=== PATIENT | female | born 1930 | race Caucasian/White ===

== ENCOUNTER 2016-11-02 15:27 | Inpatient (IN) | payer BC, OTHER ==
[~2016-11-02] VITALS: Ht 152.4 cm; Wt 73.5 kg
[~2016-11-02 15:27] MED LIST: ALBU1AER9 INH; ASPEC325 PO; CFT250 PO; CHOL100027 PO; CLTP PO; HYDC25 PO; MGNO400 PO; MULTTAB58 PO; PRD20 PO
[2016-11-02] MEDS ORDERED: PIPERACILLIN/TAZOBACTAM 4.5 GM/100ML D5W IV STA (15:48)
[2016-11-02] MEDS ORDERED: ALBUT/IPRATROP 3MG/0.5MG NEB 3 ML VIAL INH STA (15:48)
[2016-11-02] MEDS ORDERED: METHYLPREDNISOLONE 125 MG VIAL IV STA (15:48)
[2016-11-02] MEDS ORDERED: ALBU18002 INH (16:11)
[2016-11-02] MEDS ORDERED: CALCTAB7 PO (16:11)
[2016-11-02] MEDS ORDERED: ASPI-113 PO (16:11)
[2016-11-02] MEDS ORDERED: HYDR12.56 PO (16:11)
[2016-11-02] MEDS ORDERED: ADVIN10/60 INH (16:13)
--- NOTE | 2016-11-02 16:16 | DIAGNOSTIC IMAGING REPORT ---
CHEST ONE VIEW PORTABLE CLINICAL HISTORY: Sepsis COMPARISON STUDY: Chest radiograph September 15, 2015. FINDINGS: Lung volumes are normal. No consolidation is identified. There is no evidence of pulmonary edema. Cardiomediastinal silhouette is stable. IMPRESSION: No acute cardiopulmonary findings. Electronically signed by: Jesus Elizondo M.D. 11/02/2016 4:14 PM Dictated Date/Time: 11/02/2016 4:13 PM
[2016-11-02 16:43] LABS: BUN/CREATININE RATIO 12.3 (10-20); CALCIUM 9.8 mg/dl (8.5-10.1); CREATININE 1.3 mg/dl (0.60-1.20)
[2016-11-02 16:45] LABS: ALB/GLOB RATIO 0.9 (0.9-2)
[2016-11-02] MEDS ORDERED: OPTIRAY 320 IV PRN (17:00)
[2016-11-02 17:01] LABS: HEMATOCRIT 43.3 % (37-47); MEAN CELL VOLUME 89.5 fL (80-100); MEAN CORPUSCULAR HEMOGLOBIN 29.3 pg (25-34); MEAN CORPUSCULAR HGB CONC 32.8 g/dl (32-36); MEAN PLATELET VOLUME 11.2 fL (7.4-10.4); PLATELET COUNT 204 K/uL (130-400); RED BLOOD COUNT 4.84 M/uL (4.2-5.4)
--- NOTE | 2016-11-02 17:36 | DIAGNOSTIC IMAGING REPORT ---
CT ANGIOGRAPHY OF THE CHEST, PULMONARY EMBOLUS PROTOCOL CLINICAL HISTORY: Shortness of breath. COMPARISON STUDY: Chest CT May 28, 2014 and chest radiograph performed earlier today. TECHNIQUE: Following IV administration of 104 mL of Optiray-320, helical axial images of the chest were obtained utilizing the pulmonary embolus protocol. Maximal intensity projections and sagittal and coronal reformats were viewed on an independent 3D workstation. IV contrast was administered without complication. CT DOSE: 312.36 mGy.cm FINDINGS: No pulmonary emboli are identified. The heart is mildly enlarged. There is no pericardial effusion. No enlarged thoracic lymph nodes are present. There are minimal secretions within the trachea and right mainstem bronchus. There is a 3.8 x 1.5 cm subpleural focus of consolidation with adjacent groundglass opacity within the left lower lobe. There are minimal tree-in-bud opacities within the lingula and right middle lobe. No pneumothorax or pleural effusions present. There is no cavitation. Note is made of a 6 mm left upper lobe nodule shown image 180 of 278 as well as a 4 mm nodule within the left lower lobe shown on image 76. The bony thorax is unremarkable. A right renal staghorn calculus is partially imaged. Note is made of a 6 mm nodular focus within the lingula. IMPRESSION: 1. No pulmonary emboli identified. 2. 3.8 x 1.5 cm subpleural focus of consolidation with adjacent groundglass opacity within the left lower lobe which suggests a small area of pneumonia. Additional minimal tree-in-bud opacities within the lingula and right middle lobe suggest an infectious process as well. A follow-up chest CT in one month to ensure resolution is recommended. 3. Several pulmonary nodules measuring up to 6 mm. A follow-up chest CT in 6 months to ensure stability is recommended. 4. Right renal staghorn calculus. Electronically signed by: Jesus Elizondo M.D. 11/02/2016 5:34 PM Dictated Date/Time: 11/02/2016 5:25 PM
[2016-11-02 17:40] LABS: BASO % 0.1 %; BASO ABS # 0.03 K/uL (0-0.2); COMPLETE YES; IG% 0.6 %; LYMPH % 6.3 %; LYMPH ABS # 1.69 K/uL (1.2-3.4); MONO % 6.9 %; NEUT % 86.1 %; STOMATOCYTE 1+
[2016-11-02 17:57] LABS: INR 1.2 (0.9-1.1); PARTIAL THROMBOPLASTIN RATIO 1.2; PROTHROMBIN TIME (PATIENT) 12.4 SECONDS (9.0-12.0)
[2016-11-02] MEDS ORDERED: SODIUM CHLORIDE 0.9% 1000ML 1,000 ML IV SCH (17:58)
[2016-11-02] MEDS ORDERED: NITROGLYCERIN 0.4 MG SL PER TAB CHARGE SL PRN (18:00)
[2016-11-02] MEDS ORDERED: ACETAMINOPHEN 325 MG TAB PO PRN (18:00)
[2016-11-02] MEDS ORDERED: ONDANSETRON INJ 2 MG/ML 2 ML VIAL IV PRN (18:00)
[2016-11-02] MEDS ORDERED: LEVALBUTEROL/IPRATROPIUM NEB INH SCH (18:30)
[2016-11-02] MEDS ORDERED: PIPERACILL/TAZOBAC IV 2.25 GM in DEXTROSE 5% 100ML 100 ML IV SCH (18:30)
[2016-11-02] MEDS ORDERED: LEVOFLOXACIN / D5W 500 MG in PREMIXED IN D5W 100 ML IV SCH (18:30)
--- NOTE | 2016-11-02 19:05 | History and Physical ---
History & Physical Date & Time of Service: Nov 02, 2016 at 18:36 Chief Complaint: SOB Primary Care Physician: Brian Joseph M.D. History of Present Illness Source: patient This is an 85 y/o female with PMHx of COPD with ongoing tobacco use, CKD stage 3 , PAF, HTN, Dyslipidemia and other problems as outlined below who presents to the ED c/o worsening SOB that began yesterday. Pt reports that yesterday she developed SOB that is worse with exertion. Her sxs are assoc with fevers (T max 101*F), wheezing and mildly productive cough of yellow sputum. Pt has been using her inhalers at home with only temporary relief. She was seen by PCP today. Per patient, CXR revealed bilat lower lobe pneumonia and she was sent to the ED for further evaluation. Pt has a history of COPD and continues to smoke 1.5 ppd. She is not on steroids or oxygen at home. Pt currently lives at home with her sister, [place]. Pt denies chest pain, abd pain, N/V, bowel or bladder issues, LE edema, calf pain, lightheadedness/dizziness. In the ED, pt is tachycardic, tachypneic and hypoxic on room air. She is now saturating well on 4L O2. Pt is afebrile with leukocytosis >27k. POC lactic acid 2.14. creat 1.3. Chest CT + LLL consolidation with ground glass opacity in lingula and R middle lobe. Pt received a DuoNeb tx in the ED which gave her significant relief. Pt is hemodynamically stable and will be admitted for further evaluation and treatment. Past Medical/Surgical History Medical Problems: (1) Anemia Status: Resolved (2) Carcinoma of colon Status: Resolved (3) Carcinoma of right breast Status: Resolved (4) HTN (hypertension) Status: Chronic (5) Osteoporosis Status: Chronic Surgical Problems: (1) S/P appendectomy Status: Resolved (2) S/P cholecystectomy Status: Resolved (3) S/P hemicolectomy Status: Resolved (4) S/P radical mastectomy Status: Resolved Family History Diabetes mellitus FH: COPD (chronic obstructive pulmonary disease) FH: IN (myocardial infarction) FH: cancer MS (multiple sclerosis) Social History Smoking Status: Current Every Day Smoker (1.5 ppd x 40 years ) Alcohol Use: none Drug Use: none Housing status: lives with family (sister ) Occupational Status: retired Immunizations History of Influenza Vaccine: Yes Influenza Vaccine Date: May 21, 2009 History of Tetanus Vaccine?: No Tetanus Immunization Date: Oct 05, 1999 History of Pneumococcal: Yes Pneumococcal Date: Aug 20, 2000 History of Hepatitis B Vaccine: No Multi-Drug Resistant Organisms History of MDRO: No Allergies Coded Allergies: Sulfa Antibiotics (Verified Allergy, Mild, RASH, 11/02/16) Magnesium (Unverified Allergy, Unknown, REDNESS/ITCHYNESS, 11/02/16) Home Medications Scheduled Aspirin Enteric Coated (Ecotrin Or Generic), 325 MG PO QAM Calcium Carbonate-Vitamin D W/ (Caltrate 600 Plus), 1 TAB PO DAILY Cholecalciferol (Vitamin D 1000 Unit), 1,000 INTER.UNIT PO DAILY Fluticasone Prop/Salmeterol (Advair Diskus 100/50 60 Dose), 1 PUFF INH BID Hydrochlorothiazide (Hctz), 12.5 MG PO DAILY Multiple Vitamin (Multivitamin), 1 TAB PO DAILY Scheduled PRN Albuterol Sulfate (Proair Respiclick), 2 PUFFS INH Q4 PRN for SOB/Wheezing Review of Systems Constitutional: + chills, + fatigue, + fever, No sweats, No weakness Eyes: No worsening of vision ENT: No hearing loss Respiratory: + cough, + dyspnea on exertion, + shortness of breath, + sputum, + wheezing, No dyspnea at rest Cardiovascular: No chest pain, No claudication, No edema, No palpitations Abdomen: No constipation, No diarrhea, No nausea, No pain, No vomiting Musculoskeletal: No calf pain, No swelling Genitourinary - Female: No dysuria Neurologic: No weakness Psychiatric: No depression symptoms Endocrine: + fatigue Hematologic / Lymphatic: No abnormal bleeding/bruising Integumentary: No new/changing skin lesions Physical Exam Vital Signs Date Time Temp Pulse Resp B/P Pulse Ox O2 Delivery O2 Flow Rate FiO2 11/02/16 17:49 116 21 105/74 91 Nasal Cannula 4.0 11/02/16 17:00 92 Nasal Cannula 4.0 11/02/16 17:00 113 24 105/74 92 Nasal Cannula 4.0 11/02/16 16:50 130 11/02/16 15:34 86 Room Air 11/02/16 15:34 37.3 130 30 106/68 86 Room Air General Appearance: WD/WN, no apparent distress, + pertinent finding (Pt is sitting up in bed with sister at bedside ) Head: normocephalic, atraumatic Eyes: normal inspection ENT: hearing grossly normal Neck: supple Respiratory/Chest: chest non-tender, no respiratory distress, + pertinent finding (decreased air movement to lungs bilat; no wheezing noted ) Cardiovascular: regular rate, rhythm, no edema, no murmur Abdomen/GI: normal bowel sounds, non tender, soft Back: normal inspection Extremities/Musculoskelatal: normal inspection, no calf tenderness, no pedal edema Neurologic/Psych: alert, normal mood/affect, oriented x 3 Skin: normal color, warm/dry Diagnostics Laboratory Results Results Past 24 Hours Test 11/02/16 16:06 11/02/16 16:10 11/02/16 16:42 11/02/16 17:00 Range/Units Sodium Level 139 136-145 mmol/L Potassium Level 4.0 3.5-5.1 mmol/L Chloride Level 98 98-107 mmol/L Carbon Dioxide Level 33 21-32 mmol/L Anion Gap 8.0 3-11 mmol/L Blood Urea Nitrogen 16 7-18 mg/dl Creatinine 1.30 0.60-1.20 mg/dl Est Creatinine Clear Calc Drug Dose 26.8 ml/min Estimated GFR () 42.7 Estimated GFR (Non- 36.9 BUN/Creatinine Ratio 12.3 10-20 Random Glucose 135 70-99 mg/dl Calcium Level 9.8 8.5-10.1 mg/dl Total Bilirubin 0.8 0.2-1 mg/dl Aspartate Amino Transf (AST/SGOT) 14 15-37 U/L Alanine Aminotransferase (ALT/SGPT) 16 12-78 U/L Alkaline Phosphatase 78 45-117 U/L Total Protein 7.8 6.4-8.2 gm/dl Albumin 3.6 3.4-5.0 gm/dl Globulin 4.2 2.5-4.0 gm/dl Albumin/Globulin Ratio 0.9 0.9-2 Bedside Lactic Acid Venous 2.14 0.90-1.70 mmol/L White Blood Count 26.70 4.8-10.8 K/uL Red Blood Count 4.84 4.2-5.4 M/uL Hemoglobin 14.2 12.0-16.0 g/dL Hematocrit 43.3 37-47 % Mean Corpuscular Volume 89.5 80-100 fL Mean Corpuscular Hemoglobin 29.3 25-34 pg Mean Corpuscular Hemoglobin Concent 32.8 32-36 g/dl Platelet Count 204 130-400 K/uL Mean Platelet Volume 11.2 7.4-10.4 fL Neutrophils (%) (Auto) 86.1 % Lymphocytes (%) (Auto) 6.3 % Monocytes (%) (Auto) 6.9 % Eosinophils (%) (Auto) 0.0 % Basophils (%) (Auto) 0.1 % Neutrophils # (Auto) 23.00 1.4-6.5 K/uL Lymphocytes # (Auto) 1.69 1.2-3.4 K/uL Monocytes # (Auto) 1.83 0.11-0.59 K/uL Eosinophils # (Auto) 0.00 0-0.5 K/uL Basophils # (Auto) 0.03 0-0.2 K/uL RDW Standard Deviation 44.8 36.4-46.3 fL RDW Coefficient of Variation 13.7 11.5-14.5 % Immature Granulocyte % (Auto) 0.6 % Immature Granulocyte # (Auto) 0.15 0.00-0.02 K/uL Stomatocytes 1+ Influenza Type A Antigen Neg for Influ A NEG Influenza Type B Antigen Neg for Influ B NEG Test 11/02/16 17:30 11/02/16 17:45 11/02/16 17:51 Range/Units Prothrombin Time 12.4 9.0-12.0 SECONDS Prothromb Time International Ratio 1.2 0.9-1.1 Activated Partial Thromboplast Time 29.9 21.0-31.0 SECONDS Partial Thromboplastin Ratio 1.2 Bedside Troponin I 0.000 0-0.045 ng/ml Microbiology Results 11/02/16 Blood Culture, Received Pending 11/02/16 Blood Culture, Received Pending Diagnostic Radiology CHEST CT IMPRESSION: 1. No pulmonary emboli identified. 2. 3.8 x 1.5 cm subpleural focus of consolidation with adjacent groundglass opacity within the left lower lobe which suggests a small area of pneumonia. Additional minimal tree-in-bud opacities within the lingula and right middle lobe suggest an infectious process as well. A follow-up chest CT in one month to ensure resolution is recommended. 3. Several pulmonary nodules measuring up to 6 mm. A follow-up chest CT in 6 months to ensure stability is recommended. 4. Right renal staghorn calculus. CXR IMPRESSION: No acute cardiopulmonary findings. EKG EKG: sinus tachycardia at 119 bpm with nonspec T wave abnormalities in lateral leads; T wave changes are new when compared to EKG from 09/11/15 Impression Assessment and Plan HYPOXIC RESPIRATORY FAILURE SECONDARY TO PNEUMONIA/COPD EXACERBATION pt presented with SOB assoc with low grade fever, wheezing and mildly prod cough ; O2 84% on arrival--> now saturating well on 4L O2 -admit to telemetry -meets SIRS criteria with tachycardia, tachypnea, leukocytosis > 26k and POC lactic acid 2.14 -CT chest + LLL consolidation with ground-glass opacity to lingula and R middle lobe -negative flu -blood and sputum cx-pending -repeat lactic acid within 6 hrs -start IVF and abx (Zosyn and Levaquin) -start Xopenex and Prednisone 40mg daily -cont supplemental O2 -counseled regarding importance of smoking cessation -monitor PULMONARY NODULES -CT chest + multiple pulmonary nodules measuring up to 6 mm -recommend repeat CT in 6 months CKD STAGE 3 -creatinine is at baseline around 1.3 -cont to monitor with daily prp and avoid nephrotoxic agents when able PAF -EKG: sinus tachy -cont ASA HTN -BP on low side -hold HCTZ for now; restart when BP stabilizes -monitor DYSLIPIDEMIA -diet-controlled DVT PROPHYLAXIS -subq Lovenox CODE STATUS -DNR/DNI per discussion with patient upon admission DISPO Pt seen in collaboration with Dr. Mares. Please see his addendum for further details. Thanks! -Of note: patient will be followed by Dr. Rush starting tomorrow AM VTE Prophylaxis VTE Risk Assessment Done? Y/N: Yes Risk Level: Moderate Note ATTENDING ADDENDUM Record reviewed. Patient interviewed and examined. Care coordinated with Allegra Bennett PA-C. Please refer to her documentation for patient's history. Briefly, 85 YO female with COPD. Presented to ED with worsening cough and dyspnea. EXAM: General- no acute distress VS- as noted Neck- + JVD Lungs- diffuse wheezing Heart- RRR Abdomen- + BS, soft, nontender Extremities- no pretibial edema or calf tenderness Neuro- alert DATA: WBC 26,700. Lactate 2.14. Lab studies as noted. CXR- no apparent infiltrates. CT chest- LLL and lingular infiltrates, no pulm emboli EKG- MAT 120/min, NSSTTWA's. ASSESSMENT AND PLAN: Sepsis due to pneumonia. Blood cultures obtained. Received IV Zosyn. Add levofloxacin. Serum lactate 2.14- follow. Tachycardic, hemodynamically stable. Exacerbation COPD / acute respiratory failure. Levalbuterol nebs. Prednisone 40 mg daily. Supplemental O2. Please refer to KRYSTIN Bennett's documentation for discussion of other issues. Long Mares MD .
--- NOTE | 2016-11-02 19:07 | EMERGENCY ROOM VISIT NOTE ---
History Report prepared by Bridget: Chi Herrera Under the Supervision of: Dr. Jan Cotter M.D. First contact with patient: 15:39 Chief Complaint: SHORTNESS OF BREATH Stated Complaint: SOB Nursing Triage Summary: Cough productive of scant phlegm per pt. denies cp recent dx of pneumonia smoker History of Present Illness The patient is an 85 year old female who presents to the Emergency Room with complaints of persistent shortness of breath that started yesterday morning. The patient also complains of a non-productive cough and fever of 101. She had an appointment with Kaylah at [place] prior to arrival where they did a Chest X-ray and saw lower lobe pneumonia bilaterally. They sent her to the ED via ALS and recommended she be accepted for admission here. The patient did not have any breathing treatments at her appointment before arrival to the ED. Also , upon arrival at her doctor's appointment she was 84% on room air. The patient is not normally on oxygen at home. She denies chest pain at this time. The patient does state that she smokes a pack and half per day although did not smoke today. Source of History: patient Onset: yesterday morning Position: other (global) Symptom Intensity: moderate Quality: other (shortness of breath) Timing: other (persistent) Modifying Factors (Relieving): oxygen Associated Symptoms: + cough (non-productive), + fevers, No chest pain Review of Systems See HPI for pertinent positives & negatives. A total of 10 systems reviewed and were otherwise negative. Past Medical & Surgical Medical Problems: (1) Anemia (2) Carcinoma of colon (3) Carcinoma of right breast (4) HTN (hypertension) (5) Osteoporosis (6) Pneumonia (7) Sepsis Surgical Problems: (1) S/P appendectomy (2) S/P cholecystectomy (3) S/P hemicolectomy (4) S/P radical mastectomy Family History Diabetes mellitus FH: COPD (chronic obstructive pulmonary disease) FH: LA (myocardial infarction) FH: cancer MS (multiple sclerosis) Social History Smoking Status: Current Every Day Smoker Alcohol Use: none Drug Use: none Housing Status: lives with family Occupation Status: retired Current/Historical Medications Scheduled Aspirin Enteric Coated (Ecotrin Or Generic), 325 MG PO QAM Calcium Carbonate-Vitamin D W/ (Caltrate 600 Plus), 1 TAB PO DAILY Cholecalciferol (Vitamin D 1000 Unit), 1,000 INTER.UNIT PO DAILY Fluticasone Prop/Salmeterol (Advair Diskus 100/50 60 Dose), 1 PUFF INH BID Hydrochlorothiazide (Hctz), 12.5 MG PO DAILY Multiple Vitamin (Multivitamin), 1 TAB PO DAILY Scheduled PRN Albuterol Sulfate (Proair Respiclick), 2 PUFFS INH Q4 PRN for SOB/Wheezing Allergies Coded Allergies: Sulfa Antibiotics (Verified Allergy, Mild, RASH, 11/02/16) Magnesium (Unverified Allergy, Unknown, REDNESS/ITCHYNESS, 11/02/16) Physical Exam Vital Signs Date Time Temp Pulse Resp B/P Pulse Ox O2 Delivery O2 Flow Rate FiO2 11/02/16 17:49 116 21 105/74 91 Nasal Cannula 4.0 11/02/16 17:00 92 Nasal Cannula 4.0 11/02/16 17:00 113 24 105/74 92 Nasal Cannula 4.0 11/02/16 16:50 130 11/02/16 15:34 86 Room Air 11/02/16 15:34 37.3 130 30 106/68 86 Room Air Physical Exam Constitutional: Vital signs reviewed. Eyes: Pupils are equal round reactive to light. Conjunctiva are noninjected. ENT: Pharynx is clear without erythema or exudate. Mucous membranes are moist. Neck supple without meningeal signs. Respiratory: Bibasilar rales. Mild Diffuse expiratory wheezing. Cardiovascular: Tachycardic. Heart rate 112. GI: Soft, nondistended and nontender. Bowel sounds are present. Musculoskeletal: No peripheral edema. No lower extremity tenderness. Integumentary: No cyanosis. Neurological: The patient is awake and alert. No focal deficits. Psychiatric: Normal affect. Medical Decision & Procedures ER Provider Diagnostic Interpretation: Radiology results as stated below per my review and the radiologist's interpretation: CHEST ONE VIEW PORTABLE CLINICAL HISTORY: Sepsis COMPARISON STUDY: Chest radiograph September 15, 2015. FINDINGS: Lung volumes are normal. No consolidation is identified. There is no evidence of pulmonary edema. Cardiomediastinal silhouette is stable. IMPRESSION: No acute cardiopulmonary findings. Electronically signed by: Jesus Elizondo M.D. 11/02/2016 4:14 PM Dictated Date/Time: 11/02/2016 4:[address] ANGIOGRAPHY OF THE CHEST, PULMONARY EMBOLUS PROTOCOL CLINICAL HISTORY: Shortness of breath. COMPARISON STUDY: Chest CT May 28, 2014 and chest radiograph performed earlier today. TECHNIQUE: Following IV administration of 104 mL of Optiray-320, helical axial images of the chest were obtained utilizing the pulmonary embolus protocol. Maximal intensity projections and sagittal and coronal reformats were viewed on an independent 3D workstation. IV contrast was administered without complication. CT DOSE: 312.36 mGy.cm FINDINGS: No pulmonary emboli are identified. The heart is mildly enlarged. There is no pericardial effusion. No enlarged thoracic lymph nodes are present. There are minimal secretions within the trachea and right mainstem bronchus. There is a 3.8 x 1.5 cm subpleural focus of consolidation with adjacent groundglass opacity within the left lower lobe. There are minimal tree-in-bud opacities within the lingula and right middle lobe. No pneumothorax or pleural effusions present. There is no cavitation. Note is made of a 6 mm left upper lobe nodule shown image 180 of 278 as well as a 4 mm nodule within the left lower lobe shown on image 76. The bony thorax is unremarkable. A right renal staghorn calculus is partially imaged. Note is made of a 6 mm nodular focus within the lingula. IMPRESSION: 1. No pulmonary emboli identified. 2. 3.8 x 1.5 cm subpleural focus of consolidation with adjacent groundglass opacity within the left lower lobe which suggests a small area of pneumonia. Additional minimal tree-in-bud opacities within the lingula and right middle lobe suggest an infectious process as well. A follow-up chest CT in one month to ensure resolution is recommended. 3. Several pulmonary nodules measuring up to 6 mm. A follow-up chest CT in 6 months to ensure stability is recommended. 4. Right renal staghorn calculus. Electronically signed by: Jesus Elizondo M.D. 11/02/2016 5:34 PM Dictated Date/Time: 11/02/2016 5:25 PM Laboratory Results 11/02/16 16:42 Red Blood Count 4.84, Mean Corpuscular Volume 89.5, Mean Corpuscular Hemoglobin 29.3, Mean Corpuscular Hemoglobin Concent 32.8, Mean Platelet Volume 11.2, Neutrophils (%) (Auto) 86.1, Lymphocytes (%) (Auto) 6.3, Monocytes (%) (Auto) 6.9, Eosinophils (%) (Auto) 0.0, Basophils (%) (Auto) 0.1, Neutrophils # (Auto) 23.00, Lymphocytes # (Auto) 1.69, Monocytes # (Auto) 1.83, Eosinophils # (Auto) 0.00, Basophils # (Auto) 0.03 11/02/16 16:06 Test 11/02/16 16:06 11/02/16 16:10 11/02/16 16:42 11/02/16 17:00 Anion Gap 8.0 mmol/L (3-11) Est Creatinine Clear Calc Drug Dose 26.8 ml/min Estimated GFR () 42.7 Estimated GFR (Non- 36.9 BUN/Creatinine Ratio 12.3 (10-20) Calcium Level 9.8 mg/dl (8.5-10.1) Total Bilirubin 0.8 mg/dl (0.2-1) Aspartate Amino Transf (AST/SGOT) 14 U/L (15-37) Alanine Aminotransferase (ALT/SGPT) 16 U/L (12-78) Alkaline Phosphatase 78 U/L (45-117) Total Protein 7.8 gm/dl (6.4-8.2) Albumin 3.6 gm/dl (3.4-5.0) Globulin 4.2 gm/dl (2.5-4.0) Albumin/Globulin Ratio 0.9 (0.9-2) Bedside Lactic Acid Venous 2.14 mmol/L (0.90-1.70) White Blood Count 26.70 K/uL (4.8-10.8) Red Blood Count 4.84 M/uL (4.2-5.4) Hemoglobin 14.2 g/dL (12.0-16.0) Hematocrit 43.3 % (37-47) Mean Corpuscular Volume 89.5 fL (80-100) Mean Corpuscular Hemoglobin 29.3 pg (25-34) Mean Corpuscular Hemoglobin Concent 32.8 g/dl (32-36) Platelet Count 204 K/uL (130-400) Mean Platelet Volume 11.2 fL (7.4-10.4) Neutrophils (%) (Auto) 86.1 % Lymphocytes (%) (Auto) 6.3 % Monocytes (%) (Auto) 6.9 % Eosinophils (%) (Auto) 0.0 % Basophils (%) (Auto) 0.1 % Neutrophils # (Auto) 23.00 K/uL (1.4-6.5) Lymphocytes # (Auto) 1.69 K/uL (1.2-3.4) Monocytes # (Auto) 1.83 K/uL (0.11-0.59) Eosinophils # (Auto) 0.00 K/uL (0-0.5) Basophils # (Auto) 0.03 K/uL (0-0.2) RDW Standard Deviation 44.8 fL (36.4-46.3) RDW Coefficient of Variation 13.7 % (11.5-14.5) Immature Granulocyte % (Auto) 0.6 % Immature Granulocyte # (Auto) 0.15 K/uL (0.00-0.02) Stomatocytes 1+ Influenza Type A Antigen Neg for Influ A (NEG) Influenza Type B Antigen Neg for Influ B (NEG) Test 11/02/16 17:30 11/02/16 17:45 11/02/16 18:40 Prothrombin Time 12.4 SECONDS (9.0-12.0) Prothromb Time International Ratio 1.2 (0.9-1.1) Activated Partial Thromboplast Time 29.9 SECONDS (21.0-31.0) Partial Thromboplastin Ratio 1.2 Bedside Troponin I 0.000 ng/ml (0-0.045) Laboratory results as reviewed by me. Medications Administered Medications (Trade) Dose Ordered Sig/Lucinda Route Start Time Stop Time Status Last Admin Dose Admin Piperacillin Sod/ Tazobactam Sod (Zosyn Iv) 4.5 gm ONE STAT IV 11/02/16 15:48 11/02/16 15:50 DC 11/02/16 16:48 4.5 GM Methylprednisolone Sodium Succinate (Solu-Medrol IV) 125 mg NOW STAT IV 11/02/16 15:48 11/02/16 15:50 DC 11/02/16 16:48 125 MG Albuterol/ Ipratropium (Duoneb) 3 ml NOW STAT INH 11/02/16 15:48 11/02/16 15:50 DC 11/02/16 15:57 3 ML ECG Indication: SOB/dyspnea Rate (beats per minute): 119 Rhythm: sinus tachycardia Findings: PAC, other (non specific t wave changes) ED Course 1542: The patient was evaluated in room C6. A complete history and physical exam was performed. 1548: Ordered Duoneb 3 ml INH, Solu-Medrol IV 125 mg IV, Zosyn Iv 4.5 gm IV. 1703: At this time, I reevaluated the patient and discussed getting a CAT scan with her. 1748: At this time, I discussed the patient's case with Dr. Mares - Hospitalist [facility] and he agreed to accept the patient for further evaluation. 1752: At this time, I discussed the results with the patient and her family including the incidental findings. I discussed the treatment plan with the patient. Medical Decision This is an 85-year-old female who presents with shortness breath, fever and cough. Differential diagnosis includes pneumonia, sepsis, COPD exacerbation, pulmonary edema, pulmonary embolus. I did perform a limited focused review of portions of the patient's old chart on the electronic medical record. The patient was admitted in September for a CHF exacerbation. I did evaluate the patient as noted above. IV access was established. The patient was placed on a continuous radiation monitor. The patient is hypoxemic here. She was given supplemental oxygen via nasal cannula. She was also given a DuoNeb and Solu-Medrol IV. She does have wheezing on examination as well as rales bilaterally consistent with pneumonia. I did order Zosyn IV to be given after cultures were drawn. I did order and personally review the patient's 12- lead EKG and chest x-ray as described above. Her chest x-ray does not demonstrate a pneumonia. I did order and review the patient's blood work as noted in the electronic medical record. She does have significant leukocytosis. Her lactic acid is not elevated. I did reassess the patient. She has improvement of her wheezing. She is still persistently tachycardic and hypoxemic without oxygen. Although her clinical picture is consistent with pneumonia I was concerned about her hypoxia and tachycardia. I was concerned that she may have a pulmonary embolism given the normal chest x-ray. After discussion with the patient and family, I did order a CT of the chest. I did review the images myself as well as the radiology report as described above. There is no evidence of pulmonary embolism. She does have bilateral pneumonia. I did discuss the test results with the patient and her family, including the incidental findings. I did discuss the case with the hospitalist and human services case manager. Consults Time Called: 1741 Consulting Physician: Dr. Mares - Hospitalist [facility] Returned Call: 1745 At this time, I discussed the patient's case with Dr. Mares and he agreed to accept the patient for further evaluation. Impression Primary Impression: Bilateral pneumonia Additional Impressions: Hypoxemia COPD exacerbation Leukocytosis Scribe Attestation The scribe's documentation has been prepared under my direct and personally reviewed by me in its entirety. I confirm that the note above accurately reflects all work, treatment, procedures, and medical decision making performed by me. Departure Information Dispostion Being Evaluated By Hospitalist Brian Barrios M.D. (PCP) Problem Qualifiers Primary Impression: Bilateral pneumonia Pneumonia type: due to unspecified organism Lung location: unspecified part of lung Qualified Codes: J18.9 - Pneumonia, unspecified organism Additional Impressions: Leukocytosis Leukocytosis type: unspecified Qualified Codes: D72.829 - Elevated white blood cell count, unspecified
[2016-11-02] MEDS ORDERED: PIPERACILL/TAZOBAC CONSULT ACTIVE PRN (21:00)
[2016-11-02 21:01] VITALS: BP 106/65; PULSE 78; TEMP 36.8; O2SAT 93; Ht 152.4 cm; Wt 73.5 kg
[2016-11-02] MEDS ORDERED: LEVOFLOXACIN CONSULT ACTIVE PRN (21:15)
[2016-11-02] MEDS: FLUTICASONE/SALMETEROL 100/50 (ADVAIR) 14 PUFF/1 INHALER INH SCH (21:21)
[2016-11-02] MEDS ORDERED: LEVOFLOXACIN 500MG / D5W IV ONE (22:00)
[2016-11-02] MEDS ORDERED: ENOXAPARIN 40 MG/0.4 ML SYR SC SCH (22:00)
[2016-11-02] MEDS ORDERED: PIPERACILL/TAZOBAC IV 3.375 GM in DEXTROSE 5% 100ML IV SCH (22:00)
[2016-11-02 23:05] VITALS: PULSE 86; O2SAT 95
[2016-11-02] MEDS: LEVALBUTEROL 1.25MG/0.5ML NEB INH SCH (23:33)
[2016-11-02] MEDS: IPRATROPIUM BROMIDE NEB SOLN 0.02% 2.5 ML VIAL INH SCH (23:33)
[2016-11-02 23:54] VITALS: BP 103/62; PULSE 79; TEMP 36.6; O2SAT 93
[2016-11-03] VITALS (15 sets, daily range): BP systolic 92–105; BP diastolic 45–67; PULSE 69–93; TEMP 36.4–37; O2SAT 93–99
[2016-11-03] MEDS: IPRATROPIUM BROMIDE NEB SOLN 0.02% 2.5 ML VIAL INH SCH ×6 (03:52→23:21)
[2016-11-03] MEDS: LEVALBUTEROL 1.25MG/0.5ML NEB INH SCH ×6 (03:52→23:21)
[2016-11-03 06:40] LABS: HEMATOCRIT 40.7 % (37-47); MEAN CELL VOLUME 90.6 fL (80-100); MEAN CORPUSCULAR HEMOGLOBIN 30.3 pg (25-34); MEAN CORPUSCULAR HGB CONC 33.4 g/dl (32-36); MEAN PLATELET VOLUME 11.5 fL (7.4-10.4); PLATELET COUNT 184 K/uL (130-400); RED BLOOD COUNT 4.49 M/uL (4.2-5.4); WHITE BLOOD COUNT 20.43 K/uL (4.8-10.8)
[2016-11-03 07:05] LABS: CALCIUM 8.8 mg/dl (8.5-10.1); CREATININE 1.3 mg/dl (0.60-1.20)
[2016-11-03] MEDS: CALCIUM 600MG + VIT D 400 IU TAB PO SCH (08:42)
[2016-11-03] MEDS: ASPIRIN 325 MG ECTAB PO SCH (08:42)
[2016-11-03] MEDS: FLUTICASONE/SALMETEROL 100/50 (ADVAIR) 14 PUFF/1 INHALER INH SCH ×2 (08:42→21:03)
[2016-11-03] MEDS: CHOLECALCIFEROL 1000 INTER.UNIT TAB PO SCH (08:42)
[2016-11-03] MEDS: MULTIVITAMIN TAB PO SCH (08:42)
[2016-11-03] MEDS: PIPERACILL/TAZOBAC IV 3.375 GM in DEXTROSE 5% 100ML IV SCH ×2 (09:00→17:00)
[2016-11-03] MEDS: NICOTINE 21 MG/24 HR TDSY TD SCH (09:00)
--- NOTE | 2016-11-03 19:03 | Progress Note ---
Internal Med Progress Note Date of Service: Nov 03, 2016. Provider Documentation: SUBJECTIVE: vital remains stable no fever or chills OBJECTIVE: Vital Signs-as noted below Exam: General- no sign of distress Eyes-sclera non icteric ENT-NAD Neck-no thyromegaly Lungs-diminished , no audible wheeze Heart-regular Abdomen-soft, non tender Extremities-no rash or deformity Neuro-no focal neurological deficit Lab data as noted below. ASSESSMENT & PLAN: ACUTE HYPOXIC RESPIRATORY FAILURE SECONDARY TO PNEUMONIA/COPD EXACERBATION pt presented with SOB assoc with low grade fever, wheezing and mildly prod cough ; O2 84% on arrival--> requiring 4L O2 -met SIRS criteria with tachycardia, tachypnea, leukocytosis > 26k and POC lactic acid 2.14 Leukocytosis has improved 20 K -CT chest + LLL consolidation with ground-glass opacity to lingula and R middle lobe -negative flu -blood and sputum cx- ordered - -repeat lactic acid within 6 hrs -normalized -on empiric Abx with Zosyn and Levaquin will d/c Zosyn cont Levaquin possible transition to PO in next 24 hrs will need total 7-10 days of tx -neb tx with Xopenex and Prednisone 40mg daily for COPD exacerbation -cont supplemental O2 -counseled regarding importance of smoking cessation PULMONARY NODULES -CT chest + multiple pulmonary nodules measuring up to 6 mm -recommend repeat CT in 6 months CKD STAGE 3 -creatinine is at baseline around 1.3 -cont to monitor with daily prp and avoid nephrotoxic agents when able PAF -EKG: sinus tachy -cont ASA HTN -BP on low side -hold HCTZ for now; restart when BP stabilizes -monitor DYSLIPIDEMIA -diet-controlled DVT PROPHYLAXIS -subq Lovenox CODE STATUS -DNR/DNI DISPOSITION Discharge home when medically stable PT/OT eval prior to discharge Social service consulted for discharge planning Medicine follow up with Dr Joseph Vital Signs: Date Time Temp Pulse Resp B/P Pulse Ox O2 Delivery O2 Flow Rate FiO2 11/04/16 16:43 94 Nasal Cannula 1.0 11/04/16 15:54 36.8 87 20 125/72 94 Nasal Cannula 1.0 11/04/16 15:32 50 18 91 Nasal Cannula 2.0 11/04/16 13:30 36.9 84 20 130/69 94 Nasal Cannula 1.0 11/04/16 12:00 Nasal Cannula 2.0 11/04/16 11:15 37.0 98 22 96/56 95 Nasal Cannula 2.0 11/04/16 11:08 80 18 97 Nasal Cannula 2.0 11/04/16 09:56 95 11/04/16 08:00 Nasal Cannula 2.0 11/04/16 07:15 76 18 96 Nasal Cannula 2.0 11/04/16 07:14 37.2 64 19 92/53 97 Nasal Cannula 2.0 11/04/16 04:00 Nasal Cannula 2.0 11/04/16 03:36 36.8 77 20 103/62 97 Nasal Cannula 2.0 11/04/16 03:25 81 18 97 Nasal Cannula 2.0 11/03/16 23:59 96 Nasal Cannula 2.0 11/03/16 23:21 86 18 96 Nasal Cannula 2.0 11/03/16 23:18 36.4 90 18 92/45 96 Nasal Cannula 2.0 11/03/16 20:00 Nasal Cannula 2.0 Lab Results: Results Past 24 Hours Test 11/04/16 06:25 Range/Units White Blood Count 19.56 4.8-10.8 K/uL Red Blood Count 4.31 4.2-5.4 M/uL Hemoglobin 13.0 12.0-16.0 g/dL Hematocrit 39.3 37-47 % Mean Corpuscular Volume 91.2 80-100 fL Mean Corpuscular Hemoglobin 30.2 25-34 pg Mean Corpuscular Hemoglobin Concent 33.1 32-36 g/dl RDW Standard Deviation 45.6 36.4-46.3 fL RDW Coefficient of Variation 13.8 11.5-14.5 % Platelet Count 174 130-400 K/uL Mean Platelet Volume 11.3 7.4-10.4 fL Microbiology Results 11/03/16 Gram Stain - Final, Resulted 11/03/16 Sputum Culture - Preliminary, Resulted LIGHT NORMAL DEVON Present, Final Rep...
[2016-11-03] MEDS: LEVOFLOXACIN 250MG / D5W IV SCH (21:03)
[2016-11-03] MEDS: ENOXAPARIN 30 MG/0.3 ML SYR SC SCH (21:05)
[2016-11-04] VITALS (14 sets, daily range): BP systolic 92–130; BP diastolic 53–72; PULSE 50–98; TEMP 36.8–37.2; O2SAT 91–97
[2016-11-04] MEDS: LEVALBUTEROL 1.25MG/0.5ML NEB INH SCH ×6 (03:25→23:17)
[2016-11-04] MEDS: IPRATROPIUM BROMIDE NEB SOLN 0.02% 2.5 ML VIAL INH SCH ×6 (03:25→23:17)
[2016-11-04 06:36] LABS: HEMATOCRIT 39.3 % (37-47); MEAN CELL VOLUME 91.2 fL (80-100); MEAN CORPUSCULAR HEMOGLOBIN 30.2 pg (25-34); MEAN CORPUSCULAR HGB CONC 33.1 g/dl (32-36); MEAN PLATELET VOLUME 11.3 fL (7.4-10.4); PLATELET COUNT 174 K/uL (130-400); RED BLOOD COUNT 4.31 M/uL (4.2-5.4); WHITE BLOOD COUNT 19.56 K/uL (4.8-10.8)
--- NOTE | 2016-11-04 07:52 | DIAGNOSTIC IMAGING REPORT ---
CHEST ONE VIEW PORTABLE HISTORY: Follow-up pneumonia COMPARISON: Chest CTA 11/02/2016. FINDINGS: Small focal left lower lobe peripheral consolidation and trace left pleural effusion. No pneumothorax. The right lung is clear. The heart remains mildly enlarged. IMPRESSION: No significant change in the small focal left lower lobe peripheral consolidation. There may be a trace left pleural effusion. Recommend follow-up to complete resolution Electronically signed by: Pedro Ovalle M.D. 11/04/2016 7:51 AM Dictated Date/Time: 11/04/2016 7:49 AM
[2016-11-04] MEDS: NICOTINE 21 MG/24 HR TDSY TD SCH (09:00)
[2016-11-04] MEDS: CALCIUM 600MG + VIT D 400 IU TAB PO SCH (09:50)
[2016-11-04] MEDS: MULTIVITAMIN TAB PO SCH (09:50)
[2016-11-04] MEDS: ASPIRIN 325 MG ECTAB PO SCH (09:50)
[2016-11-04] MEDS: FLUTICASONE/SALMETEROL 100/50 (ADVAIR) 14 PUFF/1 INHALER INH SCH ×2 (09:50→21:00)
[2016-11-04] MEDS: CHOLECALCIFEROL 1000 INTER.UNIT TAB PO SCH (09:51)
[2016-11-04] MEDS: ENOXAPARIN 30 MG/0.3 ML SYR SC SCH (20:58)
[2016-11-04] MEDS: LEVOFLOXACIN 250MG / D5W IV SCH (20:59)
--- NOTE | 2016-11-04 21:28 | Progress Note ---
Internal Med Progress Note Date of Service: Nov 04, 2016. Provider Documentation: SUBJECTIVE: no cough feels much better today no fever or chills OBJECTIVE: Vital Signs-as noted below Exam: General- no sign of distress Eyes-sclera non icteric ENT-NAD Neck-no thyromegaly Lungs-diminished , no audible wheeze Heart-regular Abdomen-soft, non tender Extremities-no rash or deformity Neuro-no focal neurological deficit Lab data as noted below. ASSESSMENT & PLAN: ACUTE HYPOXIC RESPIRATORY FAILURE SECONDARY TO PNEUMONIA/COPD EXACERBATION improved , respiratory status to approx baseline plan is to wean down 02 Leukocytosis continues to improve -CT chest + LLL consolidation with ground-glass opacity to lingula and R middle lobe -negative flu -blood culture negative on Levaquin will need total 7 days of tx -counseled regarding importance of smoking cessation PULMONARY NODULES -CT chest + multiple pulmonary nodules measuring up to 6 mm -recommend repeat CT in 6 months CKD STAGE 3 -creatinine is at baseline around 1.3 -cont ASA HTN -BP stable DYSLIPIDEMIA -diet-controlled DVT PROPHYLAXIS -subq Lovenox CODE STATUS -DNR/DNI DISPOSITION Discharge home when medically stable Medicine follow up with Dr Joseph Vital Signs: Date Time Temp Pulse Resp B/P Pulse Ox O2 Delivery O2 Flow Rate FiO2 11/05/16 15:57 37.2 83 16 128/71 94 Room Air 11/05/16 15:44 36.8 80 16 96 Room Air 11/05/16 11:12 80 16 96 Room Air 11/05/16 08:00 94 Room Air 11/05/16 07:36 36.8 69 16 107/61 93 Room Air 11/05/16 07:36 76 16 94 Room Air 11/05/16 03:35 73 16 93 Room Air 11/05/16 00:00 Room Air 11/04/16 23:37 37.0 62 18 113/62 93 Room Air 11/04/16 23:17 58 18 93 Room Air 11/04/16 20:04 72 18 97 Nasal Cannula 2.0 11/04/16 20:00 Room Air Lab Results: Results Past 24 Hours Test 11/05/16 05:37 Range/Units White Blood Count 11.22 4.8-10.8 K/uL Red Blood Count 4.34 4.2-5.4 M/uL Hemoglobin 13.0 12.0-16.0 g/dL Hematocrit 40.0 37-47 % Mean Corpuscular Volume 92.2 80-100 fL Mean Corpuscular Hemoglobin 30.0 25-34 pg Mean Corpuscular Hemoglobin Concent 32.5 32-36 g/dl RDW Standard Deviation 46.9 36.4-46.3 fL RDW Coefficient of Variation 13.9 11.5-14.5 % Platelet Count 213 130-400 K/uL Mean Platelet Volume 11.2 7.4-10.4 fL Creatinine 1.30 0.60-1.20 mg/dl Est Creatinine Clear Calc Drug Dose 27.3 ml/min Estimated GFR () 42.7 Estimated GFR (Non- 36.9
[2016-11-05 03:35] VITALS: PULSE 73; O2SAT 93
[2016-11-05] MEDS: IPRATROPIUM BROMIDE NEB SOLN 0.02% 2.5 ML VIAL INH SCH ×4 (03:35→16:00)
[2016-11-05] MEDS: LEVALBUTEROL 1.25MG/0.5ML NEB INH SCH ×4 (03:35→16:00)
[2016-11-05 06:01] LABS: MEAN CELL VOLUME 92.2 fL (80-100); MEAN CORPUSCULAR HGB CONC 32.5 g/dl (32-36); MEAN PLATELET VOLUME 11.2 fL (7.4-10.4); PLATELET COUNT 213 K/uL (130-400); RED BLOOD COUNT 4.34 M/uL (4.2-5.4); WHITE BLOOD COUNT 11.22 K/uL (4.8-10.8)
[2016-11-05 06:34] LABS: CREATININE 1.3 mg/dl (0.60-1.20)
[2016-11-05 07:36] VITALS: BP 107/61; PULSE 69; PULSE 76; TEMP 36.8; O2SAT 93; O2SAT 94
[2016-11-05 08:00] VITALS: O2SAT 94
[2016-11-05] MEDS: MULTIVITAMIN TAB PO SCH (10:02)
[2016-11-05] MEDS: FLUTICASONE/SALMETEROL 100/50 (ADVAIR) 14 PUFF/1 INHALER INH SCH (10:02)
[2016-11-05] MEDS: ASPIRIN 325 MG ECTAB PO SCH (10:03)
[2016-11-05] MEDS: NICOTINE 21 MG/24 HR TDSY TD SCH (10:03)
[2016-11-05] MEDS: CHOLECALCIFEROL 1000 INTER.UNIT TAB PO SCH (10:03)
[2016-11-05] MEDS: CALCIUM 600MG + VIT D 400 IU TAB PO SCH (10:04)
[2016-11-05 11:12] VITALS: PULSE 80; O2SAT 96
--- NOTE | 2016-11-05 15:56 | Discharge Instructions ---
Discharge Instructions Admission Reason for Admission: Pneumonia Sepsis Discharge Discharge Diagnosis / Problem: PNEUMONIA Discharge Goals Goal(s): Decrease discomfort, Improve disease control, Therapeutic intervention Activity Recommendations Activity Limitations: resume your previous activity . Instructions / Follow-Up Instructions / Follow-Up HOSPITAL FOLLOW UP ON @ 12:[address] Brian Joseph MD [facility] -CT chest SHOWED multiple pulmonary nodules measuring up to 6 mm -recommend repeat CT in 6 months Current Hospital Diet Patient's current hospital diet: Regular Diet Discharge Diet Recommended Diet: Regular Diet Pending Studies Studies pending at discharge: no Medical Emergencies . Who to Call and When: Medical Emergencies: If at any time you feel your situation is an emergency, please call 911 immediately. . Non-Emergent Contact Non-Emergency issues call your: Primary Care Provider . . "Provider Documentation" section prepared by Annelise Rhodes. VTE Core Measure Inpt VTE Proph given/why not?: Unfractionated heparin SQ
[2016-11-05 15:57] VITALS: BP 128/71; PULSE 83; TEMP 37.2; O2SAT 94
[2016-11-05] MEDS ORDERED: LVQ250 PO (15:57)
[2016-11-05] MEDS ORDERED: LEVOFLOXACIN 250 MG TAB PO ONE (16:00)
--- NOTE | 2016-11-05 17:16 | Discharge Summary ---
Discharge Summary Date of Service Nov 05, 2016. Discharge Summary Admission Date: Nov 02, 2016 at 18:16 Discharge Date: Nov 05, 2016 Discharge Disposition: Home Principal Diagnosis: PNEUMONIA Medication Reconciliation New Medications: Levofloxacin (Levofloxacin) 250 Mg Tab 250 MG PO DAILY for 3 Days, #3 TAB Continued Medications: Albuterol Sulfate (Proair Respiclick) 108 Mcg/Act Aer 2 PUFFS INH Q4 PRN for SOB/Wheezing Aspirin Enteric Coated (Ecotrin Or Generic) 325 Mg Ectab 325 MG PO QAM, TAB Calcium Carbonate-Vitamin D W/ (Caltrate 600 Plus) 1 Tab Tab 1 TAB PO DAILY, TAB Cholecalciferol (Vitamin D 1000 Unit) 1,000 Unit Cap 1000 INTER.UNIT PO DAILY, CAP Fluticasone Prop/Salmeterol (Advair Diskus 100/50 60 Dose) 1 Ea Aerp 1 PUFF INH BID, #180 Hydrochlorothiazide (Hctz) 12.5 Mg Cap 12.5 MG PO DAILY, TAB Multiple Vitamin (Multivitamin) 1 Tab Tab 1 TAB PO DAILY, TAB Admission Information HPI (per Admitting provider): This is an 85 y/o female with PMHx of COPD with ongoing tobacco use, CKD stage 3 , PAF, HTN, Dyslipidemia and other problems as outlined below who presents to the ED c/o worsening SOB that began yesterday. Pt reports that yesterday she developed SOB that is worse with exertion. Her sxs are assoc with fevers (T max 101*F), wheezing and mildly productive cough of yellow sputum. Pt has been using her inhalers at home with only temporary relief. She was seen by PCP today. Per patient, CXR revealed bilat lower lobe pneumonia and she was sent to the ED for further evaluation. Pt has a history of COPD and continues to smoke 1.5 ppd. She is not on steroids or oxygen at home. Pt currently lives at home with her sister, [place]. Pt denies chest pain, abd pain, N/V, bowel or bladder issues, LE edema, calf pain, lightheadedness/dizziness. In the ED, pt is tachycardic, tachypneic and hypoxic on room air. She is now saturating well on 4L O2. Pt is afebrile with leukocytosis >27k. POC lactic acid 2.14. creat 1.3. Chest CT + LLL consolidation with ground glass opacity in lingula and R middle lobe. Pt received a DuoNeb tx in the ED which gave her significant relief. Pt is hemodynamically stable and will be admitted for further evaluation and treatment. Physical Exam (per Admitting): General Appearance: WD/WN, no apparent distress, + pertinent finding (Pt is sitting up in bed with sister at bedside ) Head: normocephalic, atraumatic Eyes: normal inspection ENT: hearing grossly normal Neck: supple Respiratory/Chest: chest non-tender, no respiratory distress, + pertinent finding (decreased air movement to lungs bilat; no wheezing noted ) Cardiovascular: regular rate, rhythm, no edema, no murmur Abdomen/GI: normal bowel sounds, non tender, soft Back: normal inspection Extremities/Musculoskelatal: normal inspection, no calf tenderness, no pedal edema Neurologic/Psych: alert, normal mood/affect, oriented x 3 Skin: normal color, warm/dry Hospital Course Feels much better today , no fever or chills, cough has improved in room air ready to be discharged home P/E: no sign of distress HEENT ; sclera non icteric Lungs: no wheeze or rales HT: regular S1/S2 abdomen ;soft, non tender EXT ; no lower ext edema Neuro: no focal deficit A/P : ACUTE HYPOXIC RESPIRATORY FAILURE SECONDARY TO PNEUMONIA/COPD EXACERBATION resolved respiratory status to approx baseline not requiring 02 Leukocytosis has resolved -CT chest + LLL consolidation with ground-glass opacity to lingula and R middle lobe -negative flu -blood culture negative on Levaquin complete total 7 days of tx -counseled regarding importance of smoking cessation -stable to be discharged home today PULMONARY NODULES -CT chest + multiple pulmonary nodules measuring up to 6 mm -repeat CT in 6 months CKD STAGE 3 -creatinine is at baseline around 1.3 HTN -BP stable DYSLIPIDEMIA -diet-controlled DVT PROPHYLAXIS -subq Lovenox CODE STATUS -DNR/DNI DISPOSITION Discharge home today Medicine follow up with Dr Joseph Total time spent on discharge = 35 mins This includes examination of the patient, discharge planning, medication reconciliation, and communication with other providers. ADDENDUM: pt was not able to be seen prior to discharge , due to other emergency in floor . family left prior to be seen by me . Discharge Instructions DI: Medical v4 Discharge Instructions Admission Reason for Admission: Pneumonia Sepsis Discharge Discharge Diagnosis / Problem: PNEUMONIA Discharge Goals Goal(s): Decrease discomfort, Improve disease control, Therapeutic intervention Activity Recommendations Activity Limitations: resume your previous activity . Instructions / Follow-Up Instructions / Follow-Up HOSPITAL FOLLOW UP ON @ 12:[address] Brian Joseph MD [facility] -CT chest SHOWED multiple pulmonary nodules measuring up to 6 mm -recommend repeat CT in 6 months Current Hospital Diet Patient's current hospital diet: Regular Diet Discharge Diet Recommended Diet: Regular Diet Pending Studies Studies pending at discharge: no Medical Emergencies . Who to Call and When: Medical Emergencies: If at any time you feel your situation is an emergency, please call 911 immediately. . Non-Emergent Contact Non-Emergency issues call your: Primary Care Provider . . "Provider Documentation" section prepared by Annelise Rhodes. VTE Core Measure Inpt VTE Proph given/why not?: Unfractionated heparin SQ
== END 2016-11-05 16:00 | disposition home or self-care (01) | DRG 871 ==
LOC: ENRESERVTM → ENRESERVDT → EDBD 15:27 → C.EDC 15:31 → C.2T 18:16 → C.MED 11-04 11:31
PROVIDERS: ADMIT Hospitalist; ATTEND Hospitalist
DX: A41.9 Sepsis, unspecified organism (principal); J18.9 Pneumonia, unspecified organism; J96.01 Acute respiratory failure with hypoxia; J44.1 Chronic obstructive pulmonary disease with (acute) exacerbation; I12.0 Hypertensive chronic kidney disease with stage 5 chronic kidney disease or end stage renal disease; N18.5 Chronic kidney disease, stage 5; E87.2 Acidosis; I48.0 Paroxysmal atrial fibrillation; R00.0 Tachycardia, unspecified; F17.210 Nicotine dependence, cigarettes, uncomplicated; E78.5 Hyperlipidemia, unspecified; M81.0 Age-related osteoporosis without current pathological fracture; R91.8 Other nonspecific abnormal finding of lung field; D72.829 Elevated white blood cell count, unspecified; Z79.51 Long term (current) use of inhaled steroids; Z79.82 Long term (current) use of aspirin; Z66 Do not resuscitate; Z85.3 Personal history of malignant neoplasm of breast; Z85.038 Personal history of other malignant neoplasm of large intestine

== ENCOUNTER → 2017-05-20 | Outpatient (CLI) | payer BC ==
[~2017-05-20] MED LIST changes: +ADVIN10/60 INH; +ALBU18002 INH; -ALBU1AER9 INH; -ASPEC325 PO; +ASPI-113 PO; +CALCTAB7 PO; -CFT250 PO; -CLTP PO; -HYDC25 PO; +HYDR12.56 PO; +LVQ250 PO; -MGNO400 PO; -PRD20 PO
--- NOTE | 2017-05-20 15:51 | MAMMOGRAPHY REPORT ---
UNILATERAL LEFT DIGITAL SCREENING MAMMOGRAM WITH CAD: 05/20/2017 CLINICAL HISTORY: Asymptomatic. Personal history of breast cancer. TECHNIQUE: Left CC and MLO views were obtained. Current study was also evaluated with a Computer Aid ed Detection (CAD) system. COMPARISON: Comparison is made to exams dated: 05/07/2016 mammogram, 05/02/2015 mammogram, 04/26/2014 m ammogram, 04/17/2013 mammogram, 04/14/2012 mammogram, and 02/06/2011 mammogram - [facility]. BREAST COMPOSITION: There are scattered areas of fibroglandular density in the left breast. FINDINGS: There are mild vascular calcifications of the left breast. No suspicious mass, architectu ral distortion or cluster of suspicious microcalcifications is seen. IMPRESSION: ACR BI-RADS CATEGORY 1: NEGATIVE There is no mammographic evidence of malignancy. A 1 year screening mammogram is recommended. The pa tient will receive written notification of the results. Approximately 10% of breast cancers are not detected with mammography. A negative mammographic report should not delay biopsy if a clinically suggestive mass is present. Isaura Retana M.D. ay/:05/20/2017 08:41:46 Pasteurizing Machine Operator: Ilya STEWART(R)(M), [facility] letter sent: Normal 1/2 BI-RADS Code: ACR BI-RADS Category 1: Negative
== END | disposition home or self-care (01) ==
LOC: C.MAMM 07:14
PROVIDERS: ATTEND Family Medicine
DX: Z12.31 Encounter for screening mammogram for malignant neoplasm of breast (principal); Z85.3 Personal history of malignant neoplasm of breast; Z08 Encounter for follow-up examination after completed treatment for malignant neoplasm; Z90.11 Acquired absence of right breast and nipple